=== PATIENT | female | born 1975 | race Caucasian/White ===

== ENCOUNTER → 2017-02-24 | Outpatient (CLI) | payer OTHER ==
[~2017-02-24] MED LIST: CITA40TA12 PO; ZALE5CAP PO
== END | disposition home or self-care (01) ==
LOC: CFH 10:27
PROVIDERS: ATTEND Nurse Practitioner Women's Health
DX: N83.291 Other ovarian cyst, right side (principal); N83.292 Other ovarian cyst, left side
CPT/HCPCS: 76830

== ENCOUNTER → 2017-04-21 | Outpatient (CLI) | payer OTHER | END | disposition home or self-care (01) | LOC: CFH 10:18 | PROVIDERS: ATTEND Family Medicine | DX: R94.5 Abnormal results of liver function studies (principal); Z90.49 Acquired absence of other specified parts of digestive tract | CPT/HCPCS: 76700 ==

== ENCOUNTER → 2018-08-19 | Outpatient (CLI) | payer BC | END | disposition home or self-care (01) | LOC: CFH 07:33 | PROVIDERS: ATTEND Family Medicine | DX: R94.5 Abnormal results of liver function studies (principal); Z90.49 Acquired absence of other specified parts of digestive tract | CPT/HCPCS: 76705 ==

== ENCOUNTER 2019-03-22 12:15 | Outpatient (CLI) | payer BC ==
[2019-03-22] MEDS ORDERED: OMNIPAQUE 350 MG/ML, 100ML BOTTLE ONE (13:00)
== END 2019-03-22 23:59 | disposition home or self-care (01) ==
LOC: CFH 12:15
PROVIDERS: ATTEND Internal Medicine
DX: K31.89 Other diseases of stomach and duodenum (principal); K85.90 Acute pancreatitis without necrosis or infection, unspecified
CPT/HCPCS: 74177; Q9967

== ENCOUNTER 2019-03-31 09:28 | Outpatient (CLI) | payer BC ==
[2019-03-31] MEDS ORDERED: OMEG-157 PO (10:06)
[2019-03-31] MEDS ORDERED: ESCI20TA PO (10:06)
[2019-03-31] MEDS ORDERED: TRAZ50TA66 PO (10:06)
[2019-03-31] MEDS ORDERED: BACL-19 PO (10:06)
[2019-03-31] MEDS ORDERED: RABE20TA26 PO (10:06)
[2019-03-31] MEDS ORDERED: NORE-120 PO (10:06)
== END 2019-03-31 23:59 | disposition home or self-care (01) ==
LOC: STAR 09:28
PROVIDERS: ATTEND Internal Medicine
DX: Z02.9 Encounter for administrative examinations, unspecified (principal)

== ENCOUNTER 2019-04-06 06:50 | Day surgery (SDC) | payer BC ==
[~2019-04-06] VITALS: Ht 165.1 cm; Wt 104.4 kg
[~2019-04-06 06:50] MED LIST changes: +BACL-19 PO; +ESCI20TA PO; +NORE-120 PO; +OMEG-157 PO; +RABE20TA26 PO; +TRAZ50TA66 PO
[2019-04-06] MEDS ORDERED: LACTATED RINGERS 1,000 ML IV SCH (07:21)
[2019-04-06 07:50] VITALS: BP 133/81
[2019-04-06] MEDS ORDERED: PROPOFOL 10 MG/ML, 20ML ONE (10:50)
[2019-04-06] MEDS ORDERED: LIDOCAINE-MPF 2% ,5ML ONE (10:50)
[2019-04-06] MEDS ORDERED: ONDANSETRON ODT 8 MG PO PRN (11:00)
[2019-04-06] MEDS ORDERED: ACETAMINOPHEN 325 MG TABLET PO PRN (11:00)
[2019-04-06] MEDS ORDERED: OXYcodone 5 MG/5 ML ORAL.SOL UDC PO PRN (11:00)
[2019-04-06] MEDS ORDERED: PROMETHAZINE 25 MG SUPP PR PRN (11:00)
[2019-04-06] MEDS ORDERED: ONDANSETRON 2MG/ML, 2ML IV PRN (11:00)
[2019-04-06] MEDS ORDERED: PROMETHAZINE 25 MG/ML, 1ML IV PRN (11:00)
[2019-04-06] MEDS ORDERED: FENTANYL PF 100 MCG/2ML IV PRN (11:00)
== END 2019-04-06 13:10 | disposition home or self-care (01) ==
LOC: OUT 06:50
PROVIDERS: ATTEND Internal Medicine
DX: K31.7 Polyp of stomach and duodenum (principal); E66.9 Obesity, unspecified; Z68.38 Body mass index [BMI] 38.0-38.9, adult
CPT/HCPCS: 43251; 43259; 81025; 88305; J2405; J2704; J7120